=== PATIENT | male | born 1965 | race Caucasian/White ===

== ENCOUNTER 2016-09-15 12:29 | Inpatient (IN) | payer BC ==
[~2016-09-15] VITALS: Ht 185.4 cm; Wt 140.0 kg
[2016-09-15 12:30] VITALS: BP 155/94; PULSE 97; RESP 18; TEMP 97.7; O2SAT 95
[2016-09-15] MEDS ORDERED: SODIUM CHLOR 0.9% 1000 ML INJ 1,000 ML IV SCH (13:00)
[2016-09-15] MEDS ORDERED: KETOROLAC TROMETHAMINE 30 MG/ML (IVP) VIAL IVP ONE (13:00)
[2016-09-15] MEDS ORDERED: SODIUM CHLORIDE 0.9% FLUSH 5 ML FLUSH IVF PRN (13:00)
--- NOTE | 2016-09-15 13:13 | PD ---
HPI Chief Complaint: Abdominal Pain Time Seen by Provider: 12:39 Travel History International Travel<30 days: No Contact w/Intl Traveler<30days: No Traveled to known affect area: No History of Present Illness HPI This is a 50-year-old male who presents to the emergency department with left- sided abdominal pain, moderate severity, constant since this morning, worsening. He denies any associated nausea, vomiting, fevers or chills, and denies any hematuria or dysuria. The patient has never had pain like this before. He had a hernia repair when he was a child but otherwise no abdominal surgeries. He said he has had several bowel movements today which have been normal and he's been having some flatus. [facility] Past Medical History Hypertension: Yes Past Surgical History Other Surgery: Yes (HERNIA REPAIR) Social History Alcohol Use: Yes (RARELY) Tobacco Use: No Substance Use: No Allergies-Medications (Allergen,Severity, Reaction): Coded Allergies: No Known Allergies (Unverified , 09/15/16) Reported Meds & Prescriptions Reported Meds & Active Scripts Active Reported Garcinia Cambogia 500-200 mg-Mcg (Garcinia Cambogia-Chromium) 1 Tab Tab Multivitamin Men (Multiple Vitamins W/ Minerals) 1 Tab Tab 1 Tab PO DAILY Fenofibrate 40 Mg Tab 10 Mg PO DAILY Levothyroxine (Levothyroxine Sodium) 25 Mcg Tab 25 Mcg PO DAILY Liothyronine (Liothyronine Sodium) 5 Mcg Tab 5 Mcg PO DAILY Amlodipine (Amlodipine Besylate) 2.5 Mg Tab 2.5 Mg PO DAILY Losartan-Hydrochlorothiazide 100-12.5 Mg Tab 1 Tab PO DAILY Review of Systems Except as stated in HPI: all other systems reviewed are Neg Physical Exam Narrative GENERAL:Well appearing, no acute distress SKIN: Warm and dry. HEAD: Atraumatic. Normocephalic. EYES: Pupils equal and round. No injection or drainage. ENT: Moist mucous membranes NECK: Trachea midline. CARDIOVASCULAR: Regular rate and rhythm. No murmur appreciated. RESPIRATORY: Clear to auscultation. Breath sounds equal bilaterally. GASTROINTESTINAL: Abdomen soft, tender to palpation in the left lower quadrant with no rebound or guarding. MUSCULOSKELETAL: No obvious deformities. NEUROLOGICAL: Awake and alert. No obvious cranial nerve deficits. Moving all extremities. PSYCHIATRIC: Appropriate mood and affect; insight and judgment normal. Data Data Last Documented VS Vital Signs Date Time Temp Pulse Resp B/P Pulse Ox O2 Delivery O2 Flow Rate FiO2 09/15/16 15:17 18 09/15/16 14:28 95 Room Air 09/15/16 12:30 97.7 97 155/94 Orders Complete Blood Count With Diff (09/15/16 12:55) Comprehensive Metabolic Panel (09/15/16 12:55) Lipase (09/15/16 12:55) Urinalysis - C+S If Indicated (09/15/16 12:55) Ct Abd/Pel W Iv Contrast(Rout) (09/15/16 12:55) Iv Access Insert/Monitor (09/15/16 12:55) Ecg Monitoring (09/15/16 12:55) Oximetry (09/15/16 12:55) Sodium Chloride 0.9% Flush (Ns Flush) (09/15/16 13:00) Ketorolac Inj (Toradol Inj) (09/15/16 13:00) Sodium Chlor 0.9% 1000 Ml Inj (Ns 1000 M (09/15/16 13:00) Iohexol 350 Inj (Omnipaque 350 Inj) (09/15/16 14:52) Piperacil-Tazo 3.375 Gm Premix (Zosyn 3. (09/15/16 15:15) Admit Order (Ed Use Only) (09/15/16 15:17) Labs Laboratory Tests Test 09/15/16 13:35 White Blood Count 14.6 TH/MM3 Red Blood Count 5.56 MIL/MM3 Hemoglobin 16.6 GM/DL Hematocrit 48.7 % Mean Corpuscular Volume 87.7 FL Mean Corpuscular Hemoglobin 29.9 PG Mean Corpuscular Hemoglobin 34.1 % Concent Red Cell Distribution Width 14.1 % Platelet Count 215 TH/MM3 Mean Platelet Volume 8.2 FL Neutrophils (%) (Auto) 84.9 % Lymphocytes (%) (Auto) 8.9 % Monocytes (%) (Auto) 5.6 % Eosinophils (%) (Auto) 0.3 % Basophils (%) (Auto) 0.3 % Neutrophils # (Auto) 12.4 TH/MM3 Lymphocytes # (Auto) 1.3 TH/MM3 Monocytes # (Auto) 0.8 TH/MM3 Eosinophils # (Auto) 0.0 TH/MM3 Basophils # (Auto) 0.0 TH/MM3 CBC Comment DIFF FINAL Differential Comment Sodium Level 138 MEQ/L Potassium Level 4.4 MEQ/L Chloride Level 106 MEQ/L Carbon Dioxide Level 24.2 MEQ/L Anion Gap 8 MEQ/L Blood Urea Nitrogen 15 MG/DL Creatinine 0.97 MG/DL Estimat Glomerular Filtration 82 ML/MIN Rate Random Glucose 83 MG/DL Calcium Level 9.6 MG/DL Total Bilirubin 0.7 MG/DL Aspartate Amino Transf 45 U/L (AST/SGOT) Alanine Aminotransferase 56 U/L (ALT/SGPT) Alkaline Phosphatase 53 U/L Total Protein 7.8 GM/DL Albumin 3.8 GM/DL Lipase 81 U/L [facility] Medical Decision Making Medical Screen Exam Complete: Yes Emergency Medical Condition: Yes Interpretation(s) Afebrile, mild tachycardia, mild hypertension Leukocytosis with left shift Electrolytes are reassuring Lipase is normal Urinalysis: No infection CT abdomen and pelvis: Tiny extraluminal collections of air in the left lower quadrant Differential Diagnosis Diverticulitis, abscess, colitis, pancreatitis Narrative Course This is a 50-year-old male who presents with left lower quadrant abdominal pain. His symptoms are consistent with diverticulitis. He is placed on a monitor and an IV was established. Patient was found to have a leukocytosis. He was given a dose of IV Zosyn. CT abdomen and pelvis demonstrates tiny air collections in the extraluminal space in the left lower quadrant but no inflammation of the sigmoid colon. I still suspect perforated diverticulitis. I discussed the case with Dr. Mckenzie who recommended conservative management at this time given the patient is nontoxic appearing. Patient will be admitted to medical service and closely followed by general surgery. Physician Communication Physician Communication Discussed with Dr. Mckenzie Diagnosis Primary Impression: Perforation bowel Admitting Information Admitting Physician Requests: Admit Jen Andrews MD Sep 15, 2016 13:13
[2016-09-15] MEDS ORDERED: LIOT5TAB3 PO (13:42)
[2016-09-15] MEDS ORDERED: LOSA100T3 PO (13:42)
[2016-09-15] MEDS ORDERED: AMLO2.5T PO (13:42)
[2016-09-15] MEDS ORDERED: FENO1TAB46 PO (13:42)
[2016-09-15] MEDS ORDERED: LEVO25TA4 PO (13:42)
[2016-09-15] MEDS ORDERED: MULT1TAB85 PO (13:43)
[2016-09-15] MEDS ORDERED: GARC500T (13:43)
[2016-09-15 13:54] LABS: AUTOMATED NEUTROPHIL # 12.4 TH/MM3 (1.8-7.7); BASOPHIL % 0.3 % (0.0-2.0); EOSINOPHIL % 0.3 % (0.0-4.0); HEMATOCRIT 48.7 % (39.0-51.0); HEMO FLAGS DIFF FINAL; LYMPH % 8.9 % (9.0-44.0); LYMPHOCYTE # 1.3 TH/MM3 (1.0-4.8); MEAN CELL VOLUME 87.7 FL (80.0-100.0); MEAN CORPUSCULAR HEMOGLOBIN 29.9 PG (27.0-34.0); MEAN CORPUSCULAR HGB CONC 34.1 % (32.0-36.0); MONO % 5.6 % (0.0-8.0); NEUT % 84.9 % (16.0-70.0); PLATELET COUNT 215 TH/MM3 (150-450); RED BLOOD COUNT 5.56 MIL/MM3 (4.50-5.90); RED CELL DISTRIBUTION WIDTH 14.1 % (11.6-17.2); WHITE BLOOD COUNT 14.6 TH/MM3 (4.0-11.0)
[2016-09-15 14:10] LABS: ALKALINE PHOSPHATASE 53 U/L (45-117); TOTAL BILIRUBIN ADULT 0.7 MG/DL (0.2-1.0)
[2016-09-15 14:19] LABS: ALT (GPT) 56 U/L (12-78); ANION GAP 8 MEQ/L (5-15); AST (GOT) 45 U/L (15-37); BICARBONATE 24.2 MEQ/L (21.0-32.0); BLOOD UREA NITROGEN 15 MG/DL (7-18); CHLORIDE 106 MEQ/L (98-107); GLOMERULAR FILTRATION RATE 82 ML/MIN (>89); POTASSIUM 4.4 MEQ/L (3.5-5.1); SODIUM (NA) 138 MEQ/L (136-145)
[2016-09-15 14:28] VITALS: RESP 18; O2SAT 95
[2016-09-15] MEDS ORDERED: IOHEXOL 350 MG/ML 10 ML VIAL (for RAD DIAG) IV ONE (14:52)
[2016-09-15] MEDS ORDERED: PIPERACIL-TAZO 3.375 GM PREMIX 50 ML IV ONE (15:15)
--- NOTE | 2016-09-15 15:17 | RADRPT ---
EXAM DATE/TIME: 09/15/2016 14:45 [place] COMPARISON: No previous studies available for comparison. INDICATIONS : Left sided lower abdominal pain. IV CONTRAST: 97 cc Omnipaque 350 (iohexol) IV ORAL CONTRAST: No oral contrast ingested. RADIATION DOSE: 22.53 CTDIvol (mGy) MEDICAL HISTORY : Hypertension. SURGICAL HISTORY : Hernia repair. ENCOUNTER: Initial ACUITY: 1 day PAIN SCALE: 6/10 LOCATION: Left lower quadrant TECHNIQUE: Volumetric scanning of the abdomen and pelvis was performed. Using automated exposure control and adjustment of the mA and/or kV according to patient size, radiation dose was kept as low as reasonably achievable to obtain optimal diagnostic quality images. FINDINGS: The lung bases are clear. The liver is free of focal defects. The gallbladder, spleen , pancreas and adrenals are unremarkable. There is symmetrical renal function. Region of the cecum and terminal ileum appear unremarkable. In the pelvis there is no evidence for diverticulitis. Bladder, prostate and seminal vesicles are un remarkable. There is small inguinal hernia containing only fat. Two tiny extraluminal collections of air are present that appear to be associated with the splenic fl exure. There is no evidence for diverticulitis. There are diverticula in the sigmoid colon. CONCLUSION: Tiny collections of air as described above that are clearly extraluminal. Etiology i s either from the sigmoid colon or the splenic flexure. Sebas hTao MD FACR on September 15, 2016 at 15:05 Board Certified Radiologist. This report was verified electronically.
[2016-09-15 15:46] VITALS: BP 148/76; PULSE 96; RESP 18; O2SAT 96
[2016-09-15 16:05] LABS: BLOOD, URINE NEG (NEG); COMMENT (UR) CULT NOT INDICATED; CULTURE IF INDICATED CULT NOT INDICATED; GLUCOSE,URINE NEG (NEG); KETONE, URINE NEG (NEG); MUCUS URINE FEW /lpf (OCC); NITRITE,URINE NEG (NEG); PH, URINE 6.5 (5.0-8.5); URINE COLOR YELLOW (YELLW/STRAW)
--- NOTE | 2016-09-15 17:18 | HHI.HP ---
[facility] Service Family Medicine Primary Care Physician Mariia Mcintosh MD Admission Diagnosis perforation Diagnoses: International Travel<30 Days: No Contact w/Intl Traveler<30days: No Known Affected Area: No History of Present Illness Patient is a 50-year-old male with a PMH significant for HTN, hypothyroidism. Presents here today due to left lower quadrant abdominal pain. This started at 8 AM that felt like tightness that progressively worsened throughout the morning until about noon. He reported that the pain felt like indigestion and belching did help with some of the relief. Patient had a normal BM this morning and later on during the day. Prior to the onset of the symptoms, patient reports being asymptomatic. No associated chest pain, SOB. Deep breaths due make the abdominal pain worse. Otherwise denies hematochezia, melena, dysuria, diarrhea, fever/chills. Reports a normal colonoscopy performed one year ago. Denies a history of diverticulosis. No prior episodes similar to this. (Sarah Boyer MD R2) Review of Systems Constitutional: DENIES: Diaphoretic episodes, Fever, Chills, Change in appetite Ears, nose, mouth, throat: DENIES: Throat pain, Running Nose Respiratory: DENIES: Cough, Sputum production, Shortness of breath Cardiovascular: DENIES: Chest pain, Palpitations, Syncope, Lower Extremity Edema Gastrointestinal: COMPLAINS OF: Abdominal pain, DENIES: Black stools, Bloody stools, Constipation, Diarrhea, Nausea, Vomiting Genitourinary: DENIES: Dysuria Integumentary: DENIES: Rash Neurologic: DENIES: Headache, Localized weakness (Sarah Boyer MD R2) Past Family Social History Past Medical History HTN Hypothyroidism HLD Past Surgical History inguinal hernia repair BL right biceps tendon repair 2002 Reported Medications Reported Meds & Active Scripts Active Reported Garcinia Cambogia 500-200 mg-Mcg (Garcinia Cambogia-Chromium) 1 Tab Tab Multivitamin Men (Multiple Vitamins W/ Minerals) 1 Tab Tab 1 Tab PO DAILY Fenofibrate 40 Mg Tab 10 Mg PO DAILY Levothyroxine (Levothyroxine Sodium) 25 Mcg Tab 25 Mcg PO DAILY Liothyronine (Liothyronine Sodium) 5 Mcg Tab 5 Mcg PO DAILY Amlodipine (Amlodipine Besylate) 2.5 Mg Tab 2.5 Mg PO DAILY Losartan-Hydrochlorothiazide 100-12.5 Mg Tab 1 Tab PO DAILY (Sarah Boyer MD R2) Allergies: Coded Allergies: No Known Allergies (Unverified , 09/15/16) Family History Adopted: Possible history of cardiac disease in the family. Otherwise unknown. Social History Lives with and 2 boys Works at [employer] Tobacco: quit 10yrs ago. Smoked about 1pp/mth Alcohol: socially Illicit: none (Sarah Boyer MD R2) Physical Exam Vital Signs Vital Signs Date Time Temp Pulse Resp B/P Pulse Ox O2 Delivery O2 Flow Rate FiO2 09/15/16 15:46 96 18 148/76 96 Room Air 09/15/16 15:17 18 09/15/16 14:28 18 95 Room Air 09/15/16 12:30 97.7 97 18 155/94 95 Room Air Physical Exam GENERAL: This is a well-nourished, well-developed patient, in no apparent distress. SKIN: No rashes, ecchymoses or lesions. Cool and dry. EYES: Pupils equal round and reactive. Extraocular motions intact. No scleral icterus. No injection or drainage. ENT: Nose without bleeding, purulent drainage. Throat without erythema, tonsillar hypertrophy or exudate. Uvula midline. Airway patent. NECK: Trachea midline. No lymphadenopathy. CARDIOVASCULAR: Regular rate and rhythm without murmurs, gallops, or rubs. RESPIRATORY: Clear to auscultation. Breath sounds equal bilaterally. No wheezes , rales, or rhonchi. GASTROINTESTINAL: Abdomen soft, nondistended. Bowel sounds present. Mild left lower quadrant tenderness. No guarding. No rebound. MUSCULOSKELETAL: Extremities without clubbing, cyanosis, or edema. No calf tenderness. NEUROLOGICAL: Awake and alert.Motor and sensory grossly within normal limits. Five out of 5 muscle strength in all muscle groups. Normal speech. Laboratory Laboratory Tests Test 09/15/16 09/15/16 13:35 15:25 White Blood Count 14.6 Red Blood Count 5.56 Hemoglobin 16.6 Hematocrit 48.7 Mean Corpuscular Volume 87.7 Mean Corpuscular Hemoglobin 29.9 Mean Corpuscular Hemoglobin 34.1 Concent Red Cell Distribution Width 14.1 Platelet Count 215 Mean Platelet Volume 8.2 Neutrophils (%) (Auto) 84.9 Lymphocytes (%) (Auto) 8.9 Monocytes (%) (Auto) 5.6 Eosinophils (%) (Auto) 0.3 Basophils (%) (Auto) 0.3 Neutrophils # (Auto) 12.4 Lymphocytes # (Auto) 1.3 Monocytes # (Auto) 0.8 Eosinophils # (Auto) 0.0 Basophils # (Auto) 0.0 CBC Comment DIFF FINAL Differential Comment Sodium Level 138 Potassium Level 4.4 Chloride Level 106 Carbon Dioxide Level 24.2 Anion Gap 8 Blood Urea Nitrogen 15 Creatinine 0.97 Estimat Glomerular Filtration 82 Rate Random Glucose 83 Calcium Level 9.6 Total Bilirubin 0.7 Aspartate Amino Transf 45 (AST/SGOT) Alanine Aminotransferase 56 (ALT/SGPT) Alkaline Phosphatase 53 Total Protein 7.8 Albumin 3.8 Lipase 81 Urine Color YELLOW Urine Turbidity CLEAR Urine pH 6.5 Urine Specific Breeding 1.050 Urine Protein TRACE Urine Glucose (UA) NEG Urine Ketones NEG Urine Occult Blood NEG Urine Nitrite NEG Urine Bilirubin NEG Urine Urobilinogen LESS THAN 2.0 Urine Leukocyte Esterase NEG Urine RBC 2 Urine WBC 2 Urine Mucus FEW Microscopic Urinalysis Comment CULT NOT INDICATED (Sarah Boyer MD R2) Result Diagram: 09/15/16 1335 09/15/16 1335 Imaging Last Impressions Abdomen/Pelvis CT 09/15/16 1255 Signed Impressions: Service Date/Time: Thursday, September 15, 2016 14:45 - CONCLUSION: Tiny collections of air as described above that are clearly extraluminal. Etiology is either from the sigmoid colon or the splenic flexure. Sebas Thao MD FACR (Sarah Boyer MD R2) Assessment and Plan Assessment and Plan 50-year-old male with a PMH significant for HTN, hypothyroidism. Admitted for possible abdominal perforation Code Status full Discussed Condition With sdw Dr. Tillman and Dr. Santos (Sarah Boyer MD R2) Problem List: (1) Perforation bowel Status: Acute Plan: Presented due to left lower quadrant abdominal pain with no other significant symptoms. CT abdomen shows extraluminal collections of air with etiology either from sigmoid colon or the splenic flexure. Colonoscopy was 1 year ago but was negative for significant findings. PE reassuring for no acute peritonitis -Vital signs on admission were unremarkable but patient did develop fever with a high of 100.4 -Blood cultures ordered -Leukocytosis present -BMP and UA unremarkable Surgery consulted: appreciate recommendations * medical management at this time Medications: * Rocephin 09/15- * Metronidazole 500mg q6 (09/15- * Toradol and morphine for pain * Zosyn x1 in ED (2) Hypothyroidism Status: Acute Plan: continue home meds: Levothyroxine and Liothyronine (3) HTN (hypertension) Status: Acute Plan: Continue home medications: amlodipine, HCTZ, Losartan (4) Nutrition, metabolism, and development symptoms Status: Acute Plan: Diet: NPO until evaluated by surgery Fluids: NS at 175 Electrolytes: unremarkable, continue to monitor DVT PPX: SCDs GI PPX: not indicated (Sarah Boyer MD R2) Physician Certification 2 Midnight Certification Type: Admission for Inpatient Services Order for Inpatient Services The services are ordered in accordance with Medicare regulations or non- Medicare payer requirements, as applicable. In the case of services not specified as inpatient-only, they are appropriately provided as inpatient services in accordance with the 2-midnight benchmark. Estimated LOS (days): 3 days is the estimated time the patient will need to remain in the hospital, assuming treatment plan goals are met and no additional complications. Post-Hospital Plan: Home (Sarah Boyer MD R2) 2 Midnight Certification Type: Admission for Inpatient Services Post-Hospital Plan: Home (Maikel Santos MD) Sarah Boyer MD R2 Sep 15, 2016 17:18 Maikel Santos MD Sep 15, 2016 17:47
[2016-09-15] MEDS ORDERED: PILL SPLITTER OTHER PRN (17:45)
--- NOTE | 2016-09-15 17:51 | HHI.FPPN ---
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 No nausea vomiting or diaphoresis, last bowel movement was today, is passing flatus, no reported urinary tract symptoms. Has had a colonoscopy by Dr. Gene Soni in the past and was told that he had polyps. Gen. health is good. Did have hernia surgery in the past. Please refer to resident history and physical for complete discussed in details regarding past medical history, social history and family history as well as review of systems. Objective Vitals Vital Signs Date Time Temp Pulse Resp B/P Pulse Ox O2 Delivery O2 Flow Rate FiO2 09/15/16 15:46 96 18 148/76 96 Room Air 09/15/16 15:17 18 09/15/16 14:28 18 95 Room Air 09/15/16 12:30 97.7 97 18 155/94 95 Room Air Result Diagram: 09/15/16 1335 09/15/16 1335 Objective Remarks Vital signs noted. Afebrile. Gen. appearance: Healthy-appearing middle-aged gentleman accompanied by his family in the emergency room Lungs: Clear to auscultation. Cardiovascular: S1-S2, no S3 or murmurs. Abdomen: [Protuberant. Bowel sounds are present. Abdomen is somewhat rotund and on palpation there is some discomfort reported in the left mid and left lower quadrant. No rebound, no referred pain, no masses are evident. Extremities: Warm and dry A/P Assessment and Plan Clinical assessment: 50-year-old gentleman, us[employer], admitted with what appears to be perforations of the colon wall with air collections, does not appear to have free medication to the peritoneum. Examination is notable for tenderness, no true peritoneal signs are evident. Surgery consultation pending. IV antibiotics. Patient seen and examined. Case reviewed and discussed with resident team. Agree with plan of care as discussed with me and documented in the resident note. All family's questions as well as patient's questions answered. Maikel Santos MD Sep 15, 2016 17:51
[2016-09-15] MEDS ORDERED: LORazepam 2 MG/ML VIAL IM ONE (18:00)
[2016-09-15] MEDS ORDERED: diphenhydrAMINE HCL 50 MG/ML VIAL IV PUSH ONE (18:00)
[2016-09-15] MEDS ORDERED: MORPHINE SULFATE 4 MG/ML INJ IV PRN (18:30)
[2016-09-15] MEDS ORDERED: NALOXONE HCL 0.4 MG/ML AMP IV PRN ×2 (18:30)
[2016-09-15] MEDS ORDERED: SODIUM CHLORIDE 0.9% FLUSH 5 ML FLUSH FLUSH PRN (18:30)
[2016-09-15] MEDS ORDERED: ONDANSETRON HCL 4 MG/2 ML VIAL IVP PRN (18:30)
[2016-09-15] MEDS ORDERED: ACETAMINOPHEN 325 MG TAB PO PRN (18:30)
[2016-09-15] MEDS ORDERED: ENALAPRILAT 1.25 MG/ML VIAL IV PRN (18:30)
[2016-09-15 20:00] VITALS: BP 149/71; PULSE 100; RESP 20; TEMP 100.4; O2SAT 94
[2016-09-15] MEDS: SODIUM CHLORIDE 0.9% FLUSH 5 ML FLUSH FLUSH SCH (20:30)
[2016-09-15] MEDS: SODIUM CHLOR 0.9% 1000 ML INJ 1,000 ML IV SCH (20:30)
[2016-09-15] MEDS: cefTRIAXone INJ 1,000 MG in SODIUM CHLORIDE 0.9% INJ 100 ML IV SCH (20:30)
[2016-09-15] MEDS: KETOROLAC TROMETHAMINE 30 MG/ML (IVP) VIAL IV PUSH PRN (20:31)
[2016-09-15 21:04] VITALS: O2SAT 96
[2016-09-15] MEDS: metroNIDAZOLE 500 MG INJ 100 ML IV SCH (21:12)
[2016-09-16] VITALS: BP 135/66; PULSE 87; RESP 20; TEMP 98.6; O2SAT 96
[2016-09-16] MEDS: SODIUM CHLOR 0.9% 1000 ML INJ 1,000 ML IV SCH ×5 (01:59→23:12)
[2016-09-16] MEDS: metroNIDAZOLE 500 MG INJ 100 ML IV SCH ×4 (01:59→19:47)
[2016-09-16 04:10] LABS: AUTOMATED NEUTROPHIL # 9.6 TH/MM3 (1.8-7.7); BASOPHIL # 0.1 TH/MM3 (0-0.2); BASOPHIL % 0.4 % (0.0-2.0); EOSINOPHIL # 0.1 TH/MM3 (0-0.4); EOSINOPHIL % 0.5 % (0.0-4.0); HEMO FLAGS DIFF FINAL; LYMPH % 9.4 % (9.0-44.0); LYMPHOCYTE # 1.1 TH/MM3 (1.0-4.8); MEAN CORPUSCULAR HEMOGLOBIN 29.7 PG (27.0-34.0); MEAN CORPUSCULAR HGB CONC 33.8 % (32.0-36.0); NEUT % 80.7 % (16.0-70.0); PLATELET COUNT 166 TH/MM3 (150-450); RED BLOOD COUNT 4.77 MIL/MM3 (4.50-5.90); RED CELL DISTRIBUTION WIDTH 14.4 % (11.6-17.2); WHITE BLOOD COUNT 11.9 TH/MM3 (4.0-11.0)
[2016-09-16 04:49] LABS: ALKALINE PHOSPHATASE 43 U/L (45-117); ALT (GPT) 40 U/L (12-78); ANION GAP 6 MEQ/L (5-15); AST (GOT) 19 U/L (15-37); BICARBONATE 27.1 MEQ/L (21.0-32.0); BLOOD UREA NITROGEN 16 MG/DL (7-18); CHLORIDE 108 MEQ/L (98-107); GLOMERULAR FILTRATION RATE 81 ML/MIN (>89); POTASSIUM 4.1 MEQ/L (3.5-5.1); SODIUM (NA) 141 MEQ/L (136-145); TOTAL BILIRUBIN ADULT 0.8 MG/DL (0.2-1.0)
[2016-09-16] MEDS: LEVOTHYROXINE SODIUM 25 MCG TAB PO SCH (05:38)
[2016-09-16] MEDS: KETOROLAC TROMETHAMINE 30 MG/ML (IVP) VIAL IV PUSH PRN ×2 (05:38→15:58)
[2016-09-16] MEDS ORDERED: MORPHINE SULFATE 4 MG/ML INJ IV PRN (06:30)
[2016-09-16] MEDS: amLODIPine BESYLATE 5 MG TAB PO SCH (07:48)
[2016-09-16] MEDS: LIOTHYRONINE SODIUM 5 MCG TAB PO SCH (07:50)
[2016-09-16] MEDS: HYDROCHLOROTHIAZIDE 12.5 MG CAP PO SCH (07:50)
[2016-09-16] MEDS: LOSARTAN 50 MG TAB PO SCH (07:50)
[2016-09-16] MEDS: SODIUM CHLORIDE 0.9% FLUSH 5 ML FLUSH FLUSH SCH ×2 (07:58→20:18)
[2016-09-16 08:00] VITALS: BP 141/83; PULSE 85; RESP 18; TEMP 98.6; O2SAT 96
[2016-09-16] MEDS ORDERED: FENOFIBRATE PO SCH (09:00)
[2016-09-16] MEDS ORDERED: FENOFIBRATE 48 MG TAB PO SCH (09:00)
[2016-09-16] MEDS ORDERED: NON-FORMULARY DRUG (Losartan-Hydrochlorothiazide 1 TAB) PO SCH (09:00)
--- NOTE | 2016-09-16 10:29 | MB ---
cc: MAIKEL REYES MD ELISABETH VASQUEZ DATE OF CONSULTATION: 09/15/2016 REQUESTING PHYSICIAN: Maikel Reyes MD. REASON FOR CONSULTATION: Complicated diverticulitis with free air. HISTORY OF PRESENT ILLNESS The patient is a 50-year-old male who developed severe onset left lower quadrant pain and 8 o'clock this morning. The patient presents to the emergency department with evaluation bleeding on CT scan which showed small amount of free air around the sigmoid colon as well as up in the left upper quadrant. There is no free fluid and there was no obvious source, the sigmoid colon was suspected location of the perforation. The patient as well states that he has never had diverticulitis or pain like this prior. He has constant pain that feels like it would get better if he had bowel movement however, the patient denies any constipation and continues to pass flatus. Denies any nausea, vomiting. The patient denies fevers, chills or night sweats. The patient did undergo admission with IV antibiotics and general surgery asked to for consultation. REVIEW OF SYSTEMS 12-point review of systems. The patient is negative except for the pertinent positives mentioned above in history present illness. PAST MEDICAL HISTORY Hypertension. PAST SURGICAL HISTORY Bilateral inguinal hernia repair as a child. Biceps tendon repair in 2002 ALLERGIES NO KNOWN DRUG ALLERGIES. MEDICATIONS 1. Fenofibrate 2. Levothyroxine 3. Liothyronine 4. Amlodipine. 5. Losartan. 6. Hydrochlorothiazide. SOCIAL HISTORY Patient has history tobacco use, quit 10 years ago. The patient occasionally uses alcohol. Denies illicit drug use. FAMILY HISTORY Sister had history of diverticulitis. No history of GI malignancy. PHYSICAL EXAMINATION VITAL SIGNS: Temperature 97.7 degrees, pulse 97 Respiratory rate 18, blood pressure 155/94, O2 saturation 95%. IN GENERAL: The patient is a well-developed, well-nourished male in no distress. HEAD, EYES, EARS, NOSE, AND THROAT: is normocephalic, atraumatic. Pupils round, reactive, to light. Sclerae is anicteric. Mucous membranes are moist. NECK: Supple. No JVD. LUNGS: The lungs are clear to auscultation bilaterally, nonlabored breathing. HEART: The heart is Regular rate and rhythm, point of maximal impulse is nondisplaced. ABDOMEN: The abdomen is soft. Tender to palpation in the left lower quadrant with no focal tenderness or rebound or guarding. No hernias. No ascites. No organomegaly. Bowel sounds are hypoactive. BACK: No CVA tenderness. EXTREMITIES: No clubbing, cyanosis or edema. NEUROLOGIC EXAMINATION The patient's orient third democrat x3. Nonfocal peripheral exam. Cranial nerves II-XII are grossly intact. LABORATORY FINDINGS White blood cell count 14.60, hemoglobin 16.[address] scan of pelvis shows a tiny, air as described above extraluminal etiology use of sigmoid colon or splenic flexure. ASSESSMENT/PLAN The patient is a 50-year-old male with a likely complicated diverticulitis with small amounts of free air with no free fluid or abscess. The patient is clinically stable with non concerning abdominal examinations. I feel is a good candidate for nonoperative management of complicated diverticulitis. I had a long discussion with the patient about the management including N.p.o., IV fluids and reserving surgical intervention for sigmoid resection and colostomy for the patient to have peritonitis or sepsis or non response to medical management. I agree with current management at this time with IV antibiotics and n.p.o. status and IV fluids. We will follow the patient closely, thank you very much for this consultation. MD BENNY Auguste/gricelda /8:31 PM /10:20 AM
[2016-09-16] MEDS ORDERED: ACETAMIN 325 MG/BUTALBITAL 50 MG/CAFFEINE 40 MG TAB PO PRN (10:45)
[2016-09-16 12:00] VITALS: BP 141/87; PULSE 78; RESP 18; TEMP 98.2; O2SAT 93
--- NOTE | 2016-09-16 15:14 | HHI.FPPN ---
Subjective Remarks Temperature of 100.4 taken orally overnight. Has been afebrile since. BP stable. Patient states overall he is feeling better. His abdominal pain is slightly improved from yesterday. He does have an appetite. Denies pain elsewhere. Passing flatus. Had a small BM this AM. (Bill Tillman MD R1) Objective Vitals Vital Signs Date Time Temp Pulse Resp B/P Pulse Ox O2 Delivery O2 Flow Rate FiO2 09/16/16 12:00 98.2 78 18 141/87 93 09/16/16 08:00 98.6 85 18 141/83 96 09/16/16 00:00 98.6 87 20 135/66 96 09/15/16 21:04 96 21 09/15/16 20:00 100.4 100 20 149/71 94 09/15/16 15:46 96 18 148/76 96 Room Air 09/15/16 15:17 18 I/O 09/15/16 09/15/16 09/15/16 09/16/16 09/16/16 09/16/16 07:00 15:00 23:00 07:00 15:00 23:00 Intake Total 0 ml 1454 ml 1252 ml Output Total 200 ml 300 ml Balance -200 ml 1154 ml 1252 ml Intake Oral 0 ml 0 ml IV Total 1454 ml 1252 ml Output Urine Total 200 ml 300 ml (Bill Tillman MD R1) Result Diagram: 09/16/165 09/16/165 Objective Remarks GENERAL: This is a well-nourished, well-developed patient, in no apparent distress. SKIN: No rashes, ecchymoses or lesions. Cool and dry. EYES: Extraocular motions intact. No scleral icterus. No injection or drainage. ENT: Nose without bleeding, purulent drainage. Throat without erythema, tonsillar hypertrophy or exudate. Airway patent. NECK: Trachea midline. No lymphadenopathy. CARDIOVASCULAR: Regular rate and rhythm without murmurs, gallops, or rubs. RESPIRATORY: Clear to auscultation. Breath sounds equal bilaterally. No wheezes , rales, or rhonchi. GASTROINTESTINAL: Abdomen soft, nondistended. Bowel sounds present. Mild left lower quadrant tenderness. No guarding. No rebound. MUSCULOSKELETAL: Extremities without clubbing, cyanosis, or edema. No calf tenderness. NEUROLOGICAL: Awake and alert. Motor and sensory grossly within normal limits. Normal speech. (Bill Tillman MD R1) A/P Assessment and Plan 50-year-old male with a PMH significant for HTN, hypothyroidism. Admitted for possible abdominal perforation. Discharge Planning Possible discharge in 1-2 days given patient continues to improve clinically. ( Bill Tillman MD R1) Assessment and Plan Attending note: Patient was seen and examined with the resident team. Case reviewed and discussed with resident team. Agree with plan of care as discussed with me and documented in the note provided by the resident. Conservative management at the present time. (Maikel Santos MD) Problem List: (1) Perforation bowel Status: Acute Plan: Presented due to left lower quadrant abdominal pain with no other significant symptoms. CT abdomen shows extraluminal collections of air with etiology either from sigmoid colon or the splenic flexure. Colonoscopy was 1 year ago but was negative for significant findings. PE reassuring for no acute peritonitis -Blood cultures still pending, will follow -Leukocytosis resolving -BMP unremarkable Surgery consulted: appreciate recommendations * medical management at this time Medications: * Rocephin 09/15- * Metronidazole 500mg q6 (09/15- * Toradol and morphine for pain * Zosyn x1 in ED (2) Hypothyroidism Status: Chronic Plan: continue home meds: Levothyroxine and Liothyronine (3) HTN (hypertension) Status: Chronic Plan: Continue home medications: amlodipine, HCTZ, Losartan (4) Nutrition, metabolism, and development symptoms Status: Acute Plan: Diet: CLD Fluids: NS at 175 mL/hr until diet is advanced further Electrolytes: unremarkable, continue to monitor DVT PPX: SCDs GI PPX: not indicated (Bill Tillman MD R1) Bill Tillman MD R1 Sep 16, 2016 15:14 Maikel Santos MD Sep 16, 2016 16:42
--- NOTE | 2016-09-16 15:30 | HHI.PR ---
Subjective Subjective Notes Sitting up in bed Rates pain about 5/10 Objective Vitals/I&O Vital Signs Date Time Temp Pulse Resp B/P Pulse Ox O2 Delivery O2 Flow Rate FiO2 09/16/16 12:00 98.2 78 18 141/87 93 09/15/16 21:04 21 09/15/16 15:46 Room Air Labs Laboratory Tests Test 09/16/16 03:15 White Blood Count 11.9 Red Blood Count 4.77 Hemoglobin 14.2 Hematocrit 42.0 Mean Corpuscular Volume 88.0 Mean Corpuscular Hemoglobin 29.7 Mean Corpuscular Hemoglobin 33.8 Concent Red Cell Distribution Width 14.4 Platelet Count 166 Mean Platelet Volume 8.2 Neutrophils (%) (Auto) 80.7 Lymphocytes (%) (Auto) 9.4 Monocytes (%) (Auto) 9.0 Eosinophils (%) (Auto) 0.5 Basophils (%) (Auto) 0.4 Neutrophils # (Auto) 9.6 Lymphocytes # (Auto) 1.1 Monocytes # (Auto) 1.1 Eosinophils # (Auto) 0.1 Basophils # (Auto) 0.1 CBC Comment DIFF FINAL Differential Comment Sodium Level 141 Potassium Level 4.1 Chloride Level 108 Carbon Dioxide Level 27.1 Anion Gap 6 Blood Urea Nitrogen 16 Creatinine 0.98 Estimat Glomerular Filtration 81 Rate Random Glucose 88 Calcium Level 8.7 Total Bilirubin 0.8 Aspartate Amino Transf 19 (AST/SGOT) Alanine Aminotransferase 40 (ALT/SGPT) Alkaline Phosphatase 43 Total Protein 6.2 Albumin 2.9 Date/Time Procedure Status Source Growth 09/16/16 05:19 Aerobic Blood Culture Received Blood Peripheral Pending 09/16/16 05:19 Anaerobic Blood Culture Received Blood Peripheral Pending Cardiovascular: Regular Lungs: Clear Abdomen: Other (LLQ tenderness with palpation ) Extremities: No edema A/P Assessment and Plan 50 year old male with complicated diverticulitis -Continue antibiotics -Continue IVF -Okay for sips of clears -OOB and mobilize -Continue non operative treatment Attending Statement The exam, history, and the medical decision-making described in the above note were completed with the assistance of the mid-level provider. I reviewed and agree with the findings presented. I attest that I had a [id number] encounter with the patient on the same day, and personally performed and documented my assessment and findings in the medical record. Abdominal exam mild LLQ pain, no peritonitis, no rebound tenderness continue current supportive care for complicated diverticulitis, IVF, ABX, clears will follow Alie Lyons Sep 16, 2016 15:30 Alfa Mckenzie MD Sep 16, 2016 16:21
[2016-09-16 16:00] VITALS: BP 142/84; PULSE 78; RESP 18; TEMP 99; O2SAT 95
[2016-09-16 18:01] VITALS: O2SAT 95
[2016-09-16 20:00] VITALS: BP 153/87; PULSE 76; RESP 18; TEMP 98; O2SAT 96
[2016-09-16] MEDS: cefTRIAXone INJ 1,000 MG in SODIUM CHLORIDE 0.9% INJ 100 ML IV SCH (20:26)
[2016-09-17] VITALS (7 sets, daily range): BP systolic 132–157; BP diastolic 74–99; PULSE 68–83; RESP 18–20; TEMP 97–98.4; O2SAT 92–96
[2016-09-17] MEDS: metroNIDAZOLE 500 MG INJ 100 ML IV SCH ×4 (01:33→20:34)
[2016-09-17] MEDS: LEVOTHYROXINE SODIUM 25 MCG TAB PO SCH (05:10)
[2016-09-17] MEDS: SODIUM CHLOR 0.9% 1000 ML INJ 1,000 ML IV SCH ×3 (05:10→20:34)
[2016-09-17] MEDS: KETOROLAC TROMETHAMINE 30 MG/ML (IVP) VIAL IV PUSH PRN ×2 (05:11→22:42)
[2016-09-17 06:14] LABS: AUTOMATED NEUTROPHIL # 9.1 TH/MM3 (1.8-7.7); BASOPHIL # 0.1 TH/MM3 (0-0.2); BASOPHIL % 0.7 % (0.0-2.0); EOSINOPHIL # 0.1 TH/MM3 (0-0.4); EOSINOPHIL % 1.2 % (0.0-4.0); HEMATOCRIT 40.7 % (39.0-51.0); LYMPH % 10.4 % (9.0-44.0); LYMPHOCYTE # 1.2 TH/MM3 (1.0-4.8); MEAN CORPUSCULAR HGB CONC 34.1 % (32.0-36.0); MONO % 8.8 % (0.0-8.0); NEUT % 78.9 % (16.0-70.0); PLATELET COUNT 129 TH/MM3 (150-450); RED BLOOD COUNT 4.63 MIL/MM3 (4.50-5.90); RED CELL DISTRIBUTION WIDTH 14.2 % (11.6-17.2); WHITE BLOOD COUNT 11.6 TH/MM3 (4.0-11.0)
[2016-09-17 06:19] LABS: HEMO FLAGS AUTO DIFF
[2016-09-17 06:36] LABS: BICARBONATE 19.9 MEQ/L (21.0-32.0); POTASSIUM 3.9 MEQ/L (3.5-5.1)
--- NOTE | 2016-09-17 07:47 | HHI.PR ---
Subjective Subjective Notes C/o tenderness in LLQ Has been OOB Objective Vitals/I&O Vital Signs Date Time Temp Pulse Resp B/P Pulse Ox O2 Delivery O2 Flow Rate FiO2 09/17/16 00:00 97.0 75 18 154/86 96 09/16/16 18:01 21 09/15/16 15:46 Room Air Labs Laboratory Tests Test 09/17/16 09/17/16 04:55 05:31 White Blood Count 11.6 Red Blood Count 4.63 Hemoglobin 13.9 Hematocrit 40.7 Mean Corpuscular Volume 88.0 Mean Corpuscular Hemoglobin 30.0 Mean Corpuscular Hemoglobin 34.1 Concent Red Cell Distribution Width 14.2 Platelet Count 129 Mean Platelet Volume 9.3 Neutrophils (%) (Auto) 78.9 Lymphocytes (%) (Auto) 10.4 Monocytes (%) (Auto) 8.8 Eosinophils (%) (Auto) 1.2 Basophils (%) (Auto) 0.7 Neutrophils # (Auto) 9.1 Lymphocytes # (Auto) 1.2 Monocytes # (Auto) 1.0 Eosinophils # (Auto) 0.1 Basophils # (Auto) 0.1 CBC Comment AUTO DIFF Sodium Level 138 Potassium Level 3.9 Chloride Level 107 Carbon Dioxide Level 19.9 Anion Gap 11 Blood Urea Nitrogen 11 Creatinine 0.74 Estimat Glomerular Filtration 112 Rate Random Glucose 73 Calcium Level 8.3 Date/Time Procedure Status Source Growth 09/16/16 05:19 Aerobic Blood Culture Received Blood Peripheral Pending 09/16/16 05:19 Anaerobic Blood Culture Received Blood Peripheral Pending Cardiovascular: Regular Lungs: Clear Abdomen: Other (LLQ tenderness with palpation ) Extremities: No edema A/P Assessment and Plan 50 year old male with complicated diverticulitis -WBC essentially unchanged from yesterday but afebrile -Continue antibiotics -Continue IVF -Okay to continue clears for now -OOB and mobilize -Continue non operative treatment Attending Statement The exam, history, and the medical decision-making described in the above note were completed with the assistance of the mid-level provider. I reviewed and agree with the findings presented. I attest that I had a [id number] encounter with the patient on the same day, and personally performed and documented my assessment and findings in the medical record. Abdominal exam non-surgical, LLQ pain better Alie Lyons Sep 17, 2016 07:47 Alfa Mckenzie MD Oct 26, 2016 00:00
[2016-09-17] MEDS: amLODIPine BESYLATE 5 MG TAB PO SCH (08:19)
[2016-09-17] MEDS: LOSARTAN 50 MG TAB PO SCH (08:19)
[2016-09-17] MEDS: HYDROCHLOROTHIAZIDE 12.5 MG CAP PO SCH (08:19)
[2016-09-17] MEDS: LIOTHYRONINE SODIUM 5 MCG TAB PO SCH (08:20)
[2016-09-17] MEDS: SODIUM CHLORIDE 0.9% FLUSH 5 ML FLUSH FLUSH SCH ×2 (08:24→20:37)
[2016-09-17 08:55] LABS: PLATELET ESTIMATE SMEAR LOW (NORMAL); PLATELET MORPHOLOGY NORMAL (NORMAL); SCAN/DIFF AUTO DIFF CONFIRMED
--- NOTE | 2016-09-17 12:26 | HHI.FPPN ---
Subjective Remarks No acute events overnight. VS unremarkable. This morning he reports that his abdominal pain is now a 3. Is beginning to have soft/loose stools that are becoming more liquid but he is otherwise asymptomatic. Has been tolerating clear fluids without a problem. (Sarah Boyer MD R2) Objective Vitals Vital Signs Date Time Temp Pulse Resp B/P Pulse Ox O2 Delivery O2 Flow Rate FiO2 09/17/16 12:00 98.4 71 18 132/88 96 09/17/16 09:05 92 21 09/17/16 08:00 97.7 83 19 139/74 95 09/17/16 00:00 97.0 75 18 154/86 96 09/16/16 20:00 98.0 76 18 153/87 96 09/16/16 18:01 95 21 09/16/16 16:00 99.0 78 18 142/84 95 I/O 09/16/16 09/16/16 09/16/16 09/17/16 09/17/16 09/17/16 07:00 15:00 23:00 07:00 15:00 23:00 Intake Total 1454 ml 1252 ml 2220 ml 1640 ml 120 ml Output Total 300 ml 1900 ml 400 ml Balance 1154 ml 1252 ml 320 ml 1240 ml 120 ml Intake Oral 0 ml 820 ml 240 ml 120 ml IV Total 1454 ml 1252 ml 1400 ml 1400 ml Output Urine Total 300 ml 1900 ml 400 ml # Bowel Movements 0 (Sarah Boyer MD R2) Result Diagram: 09/17/16 0455 09/17/16 0531 Objective Remarks GENERAL: This is a well-nourished, well-developed patient, in no apparent distress. SKIN: No rashes, ecchymoses or lesions. Cool and dry. CARDIOVASCULAR: Regular rate and rhythm without murmurs, gallops, or rubs. RESPIRATORY: Clear to auscultation. Breath sounds equal bilaterally. No wheezes , rales, or rhonchi. GASTROINTESTINAL: Abdomen soft, nondistended. Very Mild left lower quadrant tenderness. No guarding. No rebound. NEUROLOGICAL: Awake and alert. Motor and sensory grossly within normal limits. Normal speech. (Sarah Boyer MD R2) A/P Assessment and Plan 50-year-old male with a PMH significant for HTN, hypothyroidism. Admitted for possible abdominal perforation. Discharge Planning Anticipate dc tomorrow if pt continues to improve sdw Dr. Santos and Dr. Tillman (Sarah Boyer MD R2) Assessment and Plan 09/17/16 Attending note: Patient seen and examined. Case reviewed and discussed with the resident team. Agree with plan of care as discussed with me and documented in the resident note (Maikel Santos MD) Problem List: (1) Perforation bowel Status: Acute Plan: Presented due to left lower quadrant abdominal pain with no other significant symptoms. CT abdomen shows extraluminal collections of air with etiology either from sigmoid colon or the splenic flexure. Colonoscopy was 1 year ago but was negative for significant findings. PE reassuring for no acute peritonitis -Blood cultures negative -Leukocytosis resolving -BMP unremarkable Surgery consulted: appreciate recommendations * medical management at this time Medications: * Rocephin 09/15- * Metronidazole 500mg q6 (09/15- * Toradol and morphine for pain * Zosyn x1 in ED (2) Hypothyroidism Status: Chronic Plan: continue home meds: Levothyroxine and Liothyronine (3) HTN (hypertension) Status: Chronic Plan: Continue home medications: amlodipine, HCTZ, Losartan (4) Nutrition, metabolism, and development symptoms Status: Acute Plan: Diet: Full liquids Fluids: NS at 100 mL/hr until diet is advanced further Electrolytes: unremarkable, continue to monitor DVT PPX: SCDs GI PPX: not indicated Diarrhea: started probiotics, consider adding Imodium if symptoms worsen. Likely due to diarrhea (Sarah Boyer MD R2) Sarah Boyer MD R2 Sep 17, 2016 12:26 Maikel Santos MD Sep 17, 2016 16:41
[2016-09-17] MEDS: LACTOBACILLUS ACIDOPHILUS TAB PO SCH (20:34)
[2016-09-17] MEDS: cefTRIAXone INJ 1,000 MG in SODIUM CHLORIDE 0.9% INJ 100 ML IV SCH (21:17)
[2016-09-18] MEDS: metroNIDAZOLE 500 MG INJ 100 ML IV SCH ×2 (01:44→08:23)
[2016-09-18 04:54] LABS: AUTOMATED NEUTROPHIL # 5.3 TH/MM3 (1.8-7.7); BASOPHIL % 0.4 % (0.0-2.0); EOSINOPHIL # 0.3 TH/MM3 (0-0.4); EOSINOPHIL % 3.5 % (0.0-4.0); HEMATOCRIT 39.9 % (39.0-51.0); HEMO FLAGS DIFF FINAL; LYMPH % 16.3 % (9.0-44.0); LYMPHOCYTE # 1.2 TH/MM3 (1.0-4.8); MEAN CELL VOLUME 87.9 FL (80.0-100.0); MEAN CORPUSCULAR HEMOGLOBIN 30.4 PG (27.0-34.0); MEAN CORPUSCULAR HGB CONC 34.6 % (32.0-36.0); NEUT % 68.8 % (16.0-70.0); PLATELET COUNT 155 TH/MM3 (150-450); RED BLOOD COUNT 4.54 MIL/MM3 (4.50-5.90); RED CELL DISTRIBUTION WIDTH 14.1 % (11.6-17.2); WHITE BLOOD COUNT 7.7 TH/MM3 (4.0-11.0)
[2016-09-18 05:11] LABS: BICARBONATE 24.1 MEQ/L (21.0-32.0); POTASSIUM 3.8 MEQ/L (3.5-5.1)
[2016-09-18] MEDS: LEVOTHYROXINE SODIUM 25 MCG TAB PO SCH (05:41)
[2016-09-18] MEDS: SODIUM CHLOR 0.9% 1000 ML INJ 1,000 ML IV SCH (05:42)
[2016-09-18] MEDS ORDERED: BACT800T5 PO (07:00)
[2016-09-18] MEDS ORDERED: METR500T10 PO (07:00)
--- NOTE | 2016-09-18 07:01 | HHI.DCPOC ---
Discharge Care Plan Diagnosis: (1) Perforation bowel (2) HTN (hypertension) (3) Hypothyroidism Goals to Promote Your Health * To prevent worsening of your condition and complications * To maintain your health at the optimal level Directions to Meet Your Goals Take your medications as prescribed Follow your dietary instruction Follow activity as directed Keep your appointments as scheduled Take your immunizations and boosters as scheduled If your symptoms worsen call your PCP, if no PCP go to Urgent Care Center or Emergency Room Smoking is Dangerous to Your Health. Avoid second hand smoke Call the 24-hour hour crisis hotline for domestic abuse at Sarah Boyer MD R2 Sep 18, 2016 07:01
[2016-09-18 07:54] VITALS: BP 131/81; PULSE 60; RESP 20; TEMP 97.2; O2SAT 95
[2016-09-18] MEDS: amLODIPine BESYLATE 5 MG TAB PO SCH (08:21)
[2016-09-18] MEDS: HYDROCHLOROTHIAZIDE 12.5 MG CAP PO SCH (08:21)
[2016-09-18] MEDS: LACTOBACILLUS ACIDOPHILUS TAB PO SCH (08:22)
[2016-09-18] MEDS: LOSARTAN 50 MG TAB PO SCH (08:22)
[2016-09-18] MEDS: LIOTHYRONINE SODIUM 5 MCG TAB PO SCH (08:22)
[2016-09-18] MEDS: SODIUM CHLORIDE 0.9% FLUSH 5 ML FLUSH FLUSH SCH (08:25)
[2016-09-18 08:41] VITALS: O2SAT 95
--- NOTE | 2016-09-18 11:12 | HHI.PR ---
Subjective Subjective Notes Up to chair Wants to go home today Pain much better today Objective Vitals/I&O Vital Signs Date Time Temp Pulse Resp B/P Pulse Ox O2 Delivery O2 Flow Rate FiO2 09/18/16 08:41 95 21 09/18/16 07:54 97.2 60 20 131/81 09/15/16 15:46 Room Air Labs Laboratory Tests Test 09/18/16 03:53 White Blood Count 7.7 Red Blood Count 4.54 Hemoglobin 13.8 Hematocrit 39.9 Mean Corpuscular Volume 87.9 Mean Corpuscular Hemoglobin 30.4 Mean Corpuscular Hemoglobin 34.6 Concent Red Cell Distribution Width 14.1 Platelet Count 155 Mean Platelet Volume 8.5 Neutrophils (%) (Auto) 68.8 Lymphocytes (%) (Auto) 16.3 Monocytes (%) (Auto) 11.0 Eosinophils (%) (Auto) 3.5 Basophils (%) (Auto) 0.4 Neutrophils # (Auto) 5.3 Lymphocytes # (Auto) 1.2 Monocytes # (Auto) 0.8 Eosinophils # (Auto) 0.3 Basophils # (Auto) 0.0 CBC Comment DIFF FINAL Differential Comment Sodium Level 142 Potassium Level 3.8 Chloride Level 110 Carbon Dioxide Level 24.1 Anion Gap 8 Blood Urea Nitrogen 7 Creatinine 0.75 Estimat Glomerular Filtration 110 Rate Random Glucose 86 Calcium Level 8.5 Date/Time Procedure Status Source Growth 09/16/16 05:19 Aerobic Blood Culture - Preliminary Resulted Blood Peripheral NO GROWTH IN 2 DAYS 09/16/16 05:19 Anaerobic Blood Culture - Preliminary Resulted Blood Peripheral NO GROWTH IN 2 DAYS Cardiovascular: Regular Lungs: Clear Abdomen: Other (only mild tenderness to palpation in LLQ ) Extremities: No edema A/P Assessment and Plan 50 year old male with complicated diverticulitis -WBC now normal -Transition to PO antibiotics---Cipro/Flagyl -DC IVF -Regular diet -OOB and mobilize -Continue non operative treatment Attending Statement The exam, history, and the medical decision-making described in the above note were completed with the assistance of the mid-level provider. I reviewed and agree with the findings presented. I attest that I had a [id number] encounter with the patient on the same day, and personally performed and documented my assessment and findings in the medical record. Abdominal exam benign, ok for DC home Alie Lyons Sep 18, 2016 11:12 Alfa Mckenzie MD Oct 26, 2016 00:06
[2016-09-18] MEDS ORDERED: CIPR-9 PO (11:15)
--- NOTE | 2016-09-18 12:07 | HHI.FPPN ---
Subjective Remarks No events overnight. Afebrile, vitals are stable. This morning he states his abdominal pain is much improved. He had multiple bowel movements yesterday, denies any visible blood or melena. Tolerating full liquid diet without N/V. Denies fevers. He has no complaints or concerns. Objective Vitals Vital Signs Date Time Temp Pulse Resp B/P Pulse Ox O2 Delivery O2 Flow Rate FiO2 09/18/16 08:41 95 21 09/18/16 07:54 97.2 60 20 131/81 95 09/17/16 20:00 98.4 74 20 151/99 95 09/17/16 18:17 94 21 09/17/16 16:00 97.8 68 19 157/88 96 09/17/16 12:00 98.4 71 18 132/88 96 I/O 09/17/16 09/17/16 09/17/16 09/18/16 09/18/16 09/18/16 07:00 15:00 23:00 07:00 15:00 23:00 Intake Total 1640 ml 880 ml 1040 ml 1040 ml 120 ml Output Total 400 ml 600 ml Balance 1240 ml 280 ml 1040 ml 1040 ml 120 ml Intake Oral 240 ml 880 ml 240 ml 240 ml 120 ml IV Total 1400 ml 800 ml 800 ml Output Urine Total 400 ml 600 ml # Voids 2 2 # Bowel Movements 0 0 0 Result Diagram: 09/18/16 0353 09/18/16 0353 Objective Remarks GENERAL: NAD, sitting comfortably in chair SKIN: No rashes, ecchymoses or lesions. Cool and dry. CARDIOVASCULAR: Regular rate and rhythm without murmurs, gallops, or rubs. RESPIRATORY: Clear to auscultation. Breath sounds equal bilaterally. No wheezes , rales, or rhonchi. GASTROINTESTINAL: Abdomen soft, nondistended. Very mild left lower quadrant tenderness less so than prior examination. No guarding. No rebound. +BS. NEUROLOGICAL: Awake and alert. Motor and sensory grossly within normal limits. Normal speech. A/P Assessment and Plan 50-year-old male with a PMH significant for HTN, hypothyroidism. Admitted for complicated diverticulitis. Discharge Planning Stable for discharge today Problem List: (1) Diverticulitis Status: Acute Plan: Presented due to left lower quadrant abdominal pain with no other significant symptoms. CT abdomen shows extraluminal collections of air with etiology either from sigmoid colon or the splenic flexure. Colonoscopy was 1 year ago but was negative for significant findings. PE reassuring for no acute peritonitis Blood cultures no growth after 2 days Leukocytosis resolved BMP unremarkable Surgery consulted, agree with medical management at this time Metronidazole 500mg q6 (started 09/15) Will discharge with additional 10 days of cipro and flagyl Rocephin 1gm IV q24h 09/15-09/17 Toradol and morphine for pain Zosyn x1 in ED (2) Hypothyroidism Status: Chronic Plan: continue home meds: Levothyroxine and Liothyronine (3) HTN (hypertension) Status: Chronic Plan: Continue home medications: amlodipine, HCTZ, Losartan (4) Nutrition, metabolism, and development symptoms Status: Acute Plan: Full liquid diet Fluids: discontinued Electrolytes: unremarkable DVT PPX: SCDs GI PPX: not indicated sdw Dr. Santos and Bill Álvarez MD R1 Sep 18, 2016 12:07 Bill Tillman MD R1 Sep 18, 2016 12:07 Bill Tillman MD R1 Sep 18, 2016 12:07
--- NOTE | 2016-09-18 12:19 | HHI.DS ---
Discharge Summary Admission Date Sep 15, 2016 at 15:18 Discharge Date: Sep 18, 2016 Admitting Diagnosis perforation (1) Diverticulitis Diagnosis: Principal Plan: Presented due to left lower quadrant abdominal pain with no other significant symptoms. CT abdomen shows extraluminal collections of air with etiology either from sigmoid colon or the splenic flexure. Colonoscopy was 1 year ago but was negative for significant findings. PE reassuring for no acute peritonitis Blood cultures no growth after 2 days Leukocytosis resolved BMP unremarkable Surgery consulted - Medical management at this time Metronidazole 500mg q6 (started 09/15) Will discharge with additional 10 days of cipro, flagyl, and bactrim Rocephin 1gm IV q24h 09/15-09/17 Toradol and morphine for pain Zosyn x1 in ED (2) Hypothyroidism Diagnosis: Secondary Plan: continue home meds: Levothyroxine and Liothyronine (3) HTN (hypertension) Diagnosis: Secondary Plan: Continue home medications: amlodipine, HCTZ, Losartan (4) Nutrition, metabolism, and development symptoms Diagnosis: Secondary Plan: Full liquid diet Fluids: discontinued Electrolytes: unremarkable DVT PPX: SCDs GI PPX: not indicated sdw Dr. Santos and Dr. Boyer Consultants General surgery Brief History Patient is a 50-year-old male with a PMH significant for HTN, hypothyroidism. Presents here today due to left lower quadrant abdominal pain. This started at 8 AM that felt like tightness that progressively worsened throughout the morning until about noon. He reported that the pain felt like indigestion and belching did help with some of the relief. Patient had a normal BM this morning and later on during the day. Prior to the onset of the symptoms, patient reports being asymptomatic. No associated chest pain, SOB. Deep breaths due make the abdominal pain worse. Otherwise denies hematochezia, melena, dysuria, diarrhea, fever/chills. Reports a normal colonoscopy performed one year ago. Denies a history of diverticulosis. No prior episodes similar to this. CBC/BMP: 09/18/16 0353 09/18/16 0353 Significant Findings Laboratory Tests Test 09/15/16 09/15/16 09/16/16 09/17/16 13:35 15:25 03:15 04:55 White Blood Count 14.6 TH/MM3 11.9 TH/MM3 11.6 TH/MM3 (4.0-11.0) (4.0-11.0) (4.0-11.0) Neutrophils (%) (Auto) 84.9 % 80.7 % 78.9 % (16.0-70.0) (16.0-70.0) (16.0-70.0) Lymphocytes (%) (Auto) 8.9 % (9.0-44.0) Neutrophils # (Auto) 12.4 TH/MM3 9.6 TH/MM3 9.1 TH/MM3 (1.8-7.7) (1.8-7.7) (1.8-7.7) Estimat Glomerular Filtration 82 ML/MIN (>89) 81 ML/MIN (>89) Rate Aspartate Amino Transf 45 U/L (15-37) (AST/SGOT) Urine Specific [place] 1.050 (1.002-1.035) Urine Mucus FEW /lpf (OCC) Monocytes (%) (Auto) 9.0 % (0.0-8.0) 8.8 % (0.0-8.0) Monocytes # (Auto) 1.1 TH/MM3 1.0 TH/MM3 (0-0.9) (0-0.9) Chloride Level 108 MEQ/L (98-107) Alkaline Phosphatase 43 U/L (45-117) Total Protein 6.2 GM/DL (6.4-8.2) Albumin 2.9 GM/DL (3.4-5.0) Platelet Count 129 TH/MM3 (150-450) Platelet Estimate LOW (NORMAL) Test 09/17/16 09/18/16 05:31 03:53 Carbon Dioxide Level 19.9 MEQ/L (21.0-32.0) Random Glucose 73 MG/DL (74-106) Calcium Level 8.3 MG/DL (8.5-10.1) Monocytes (%) (Auto) 11.0 % (0.0-8.0) Chloride Level 110 MEQ/L (98-107) Imaging Abdomen/pelvis CT showing tiny collections of air, extraluminal, etiology is either from the sigmoid colon with the splenic flexure PE at Discharge GENERAL: NAD, sitting comfortably in chair SKIN: No rashes, ecchymoses or lesions. Cool and dry. CARDIOVASCULAR: Regular rate and rhythm without murmurs, gallops, or rubs. RESPIRATORY: Clear to auscultation. Breath sounds equal bilaterally. No wheezes , rales, or rhonchi. GASTROINTESTINAL: Abdomen soft, nondistended. Very mild left lower quadrant tenderness less so than prior examination. No guarding. No rebound. +BS. NEUROLOGICAL: Awake and alert. Motor and sensory grossly within normal limits. Normal speech. Hospital Course Patient was started on Rocephin and Flagyl, kept NPO initially with IVF. General surgery was consulted given small amounts of free air in abdomen and agreed with nonoperative medical management. Serial abdominal exams remained negative for any signs of peritonitis. Patients abdominal pain continued to slowly improve daily. Diet was advanced slowly and he seemed to tolerate this well. He was advised by general surgery to try full liquids for the next 1-2 weeks and then advance back to a normal diet with high fiber. He will be discharged with an additional 10 days of ciprofloxacin and Flagyl and advised to follow up with his primary care physician Dr. Mcintosh who is made aware of the patients hospitalization and plan. Pt Condition on Discharge: Stable Discharge Disposition: Discharge Home Discharge Instructions DIET: Follow Instructions for: Full Liquid Diet (For 1-2 weeks), High Fiber Diet (Once resuming normal diet) Activities you can perform: Regular-No Restrictions Follow up Referrals: PCP Follow-up - 1 Week Surgical - 10 Days with Alfa Mckenzie MD New Medications: Metronidazole (Metronidazole) 500 Mg Tab 500 MG PO Q8HR Infection #30 Ref 0 TAB Ciprofloxacin (Cipro) 500 Mg Tab 500 MG PO Q12HR infection Days 10 TAB Continued Medications: Amlodipine (Amlodipine) 2.5 Mg Tab 2.5 MG PO DAILY Blood Pressure Management #30 Ref 0 TAB Fenofibrate (Fenofibrate) 40 Mg Tab 10 MG PO DAILY #30 Ref 0 TAB Garcinia Cambogia-Chromium (Garcinia Cambogia 500-200 mg-Mcg) 1 Tab Tab Levothyroxine (Levothyroxine) 25 Mcg Tab 25 MCG PO DAILY Thyroid #30 Ref 0 TAB Liothyronine (Liothyronine) 5 Mcg Tab 5 MCG PO DAILY Thyroid Supplement #30 Ref 0 TAB Losartan-Hydrochlorothiazide (Losartan-Hydrochlorothiazide) 100-12.5 Mg Tab 1 TAB PO DAILY Blood Pressure Management #30 Ref 0 TAB Multiple Vitamins W/ Minerals (Multivitamin Men) 1 Tab Tab 1 TAB PO DAILY Nutritional Supplement Ref 0 TAB Bill Tillman MD R1 Sep 18, 2016 12:19
[2016-09-18] MEDS ORDERED: metroNIDAZOLE 500 MG TAB PO SCH (14:00)
[2016-09-18] MEDS ORDERED: CIPROFLOXACIN 500 MG TAB PO SCH (21:00)
== END 2016-09-18 11:46 | disposition home or self-care (01) | DRG 392 ==
LOC: NEPE 12:29 → NEDA 15:18 → N07B 17:55
PROVIDERS: ADMIT Family Medicine; ATTEND Family Medicine
DX: K57.20 Diverticulitis of large intestine with perforation and abscess without bleeding (principal); I10 Essential (primary) hypertension; E03.9 Hypothyroidism, unspecified; E78.5 Hyperlipidemia, unspecified; Z87.891 Personal history of nicotine dependence; Z86.010 Personal history of colon polyps
CPT/HCPCS: 74177; 80048; 80053; 81001; 83690; 85025; 87040; 96361; 96374; J0696; J1885; J2543; J7030; Q9967